=== PATIENT | male | born 1955 | race Asian ===

== ENCOUNTER → 2020-07-15 09:37 | Outpatient (BNVA) | payer MEDICARE, SELFPAY | PROVIDERS: PCP Internal Medicine; Referring Provider Internal Medicine; Visit Provider Surgery | DX: K59.00 Constipation, unspecified (principal); R19.8 Other specified symptoms and signs involving the digestive system and abdomen | CPT/HCPCS: 99202 ==

== ENCOUNTER 2020-08-05 15:27 | Outpatient (REF) | payer MEDICARE, SELFPAY ==
--- NOTE | 2020-08-05 15:37 | XR_ITS ---
EXAMINATION: XR HAND, LEFT CLINICAL INFORMATION: Left fourth digit deformity. COMPARISON: None TECHNIQUE: PA, lateral, and oblique views of the left hand. FINDINGS: There is a minimally displaced oblique fracture of the mid diaphysis of the proximal thousand the fourth digit. The remainder the digits are intact. The carpal bones are normally aligned. The distal radius and ulna are intact. Mild soft tissue swelling is seen. XR/XR hand LT min 3V IMPRESSION: Acute, minimally displaced fracture of the proximal phalanx of the fifth digit with mild soft tissue swelling.
== END 2020-08-05 15:28 | disposition home or self-care (01) ==
LOC: HO.HMGCX 15:27
PROVIDERS: PCP Internal Medicine; Visit Provider Nurse Practitioner Family
DX: M20.002 Unspecified deformity of left finger(s) (principal)
CPT/HCPCS: 73130

== ENCOUNTER 2020-08-11 12:37 | Outpatient (REF) | payer MEDICARE, SELFPAY ==
--- NOTE | 2020-08-11 14:27 | XR_ITS ---
EXAMINATION: XR HAND, LEFT CLINICAL INFORMATION: Fracture, follow-up. Pain. COMPARISON: Radiographs left hand 08/05/2020. TECHNIQUE: PA, lateral, and oblique views of the left hand. FINDINGS: Fracture 4th finger proximal phalanx is again demonstrated. Alignment is similar to prior study. There is no dislocation or destructive process. No interval callus formation. Lateral view shows mild dorsal bowing distal ulna, stable. XR/XR hand LT min 3V IMPRESSION: Fracture 4th proximal phalanx similar to prior study 08/05/2020. No visible callus formation at this time.
== END 2020-08-11 12:38 | disposition home or self-care (01) ==
LOC: HO.HOSX 12:37
PROVIDERS: Visit Provider Orthopaedic Surgery
DX: S62.615A Displaced fracture of proximal phalanx of left ring finger, initial encounter for closed fracture (principal); M79.641 Pain in right hand
CPT/HCPCS: 73130; 99202

== ENCOUNTER 2020-08-13 10:30 | Day surgery (SDC) | payer MEDICARE, SELFPAY ==
--- NOTE | 2020-08-12 12:48 | HO.ANESPROP2 ---
Documented by User: Nayeli Ham 08/12/20 12:49 HPI - Anesthesia Eval Consult details Narrative: 64yo M for Ring Finger Fx ORIF PMFSH Past Medical History Medical History Altered bowel function Constipation Diabetes mellitus Surgical History Surgical History History of colonoscopy History of hemorrhoidectomy Social History Social History Are you a primary after school caregiver to a significant other at home: No Do you presently have visiting nurse or other home services: No Alcohol intake: current Alcohol intake frequency: holidays/special occasions only Smoking Status: Current every day smoker Packs Per Day: 1 Cigarettes Per Day: 20.0 Years Smoked: 40 Smoked in Last 30 Days: Yes Use of substances other than those prescribed or required for medical reasons: No Advance Directives: No Advance Directives Information Provided: Yes Advance Directives on File: No Recently lost weight without trying: No Current occupational status: retired Current occupation: right handed Meds Allergies Allergy/AdvReac Type Severity Reaction Status Date / Time No Known Allergies Allergy Verified 08/11/20 14:37 Home Medications Medication Instructions Recorded Confirmed Type metformin 1,000 mg tablet 1,000 mg PO BID 07/15/20 08/10/20 History Exam Exam Date and Time: August 12, 2020 124 Assessment and Plan Assessment Anesthesia Assessment: Chart Reviewed Documented by User: Vinny Jamison MD 08/13/20 16:01 PMFSH Past Medical History Medical History Altered bowel function Constipation Diabetes mellitus Surgical History Surgical History History of colonoscopy History of hemorrhoidectomy Social History Social History Are you a primary after school caregiver to a significant other at home: No Do you presently have visiting nurse or other home services: No Alcohol intake: current Alcohol intake frequency: holidays/special occasions only Smoking Status: Current every day smoker Packs Per Day: 1 Cigarettes Per Day: 20.0 Years Smoked: 40 Smoked in Last 30 Days: Yes Use of substances other than those prescribed or required for medical reasons: No Advance Directives: No Advance Directives Information Provided: Yes Advance Directives on File: No Recently lost weight without trying: No Current occupational status: retired Current occupation: right handed Meds Allergies Allergy/AdvReac Type Severity Reaction Status Date / Time No Known Allergies Allergy Verified 08/11/20 14:37 Home Medications Medication Instructions Recorded Confirmed Type metformin 1,000 mg tablet 1,000 mg PO BID 07/15/20 08/10/20 History Exam Airway Mallampati Class: II TM Dist: >3cm Neck ROM: Full Denture: Upper and Lower Heart: RRR Lungs: NL Other: AO Assessment and Plan Assessment Anesthesia Assessment: Anesthesia Plan Discussed Final Anesthetic Review NPO: Yes ASA Class: III Final Preanesthetic Review: No Changes in Pt Med Stat, Meds/Allgs Chart Reviewed, Consent Obtained/Reviewed and Anes Risks/Benef Reviewed Patient Risk: Intermediate Procedure Risk: Low Anesthetic Plan Anesthetic Plan: GA and Regional Block Disposition: Standard PACU
[2020-08-13] VITALS (7 sets, daily range): BP systolic 136–154; BP diastolic 75–88; PULSE 60–68; RESP 14–17; TEMP 36–36.8; O2SAT 93–98; BMI 24.7
--- NOTE | 2020-08-13 | FL_ITS ---
EXAMINATION: XR FLUOROSCOPY WITH IMAGES CLINICAL INFORMATION: ORIF left hand fracture COMPARISON: Previous x-rays 08/05/2020 and 08/11/2020 TECHNIQUE: Fluoroscopy performed by Dr. Pappas. Fluoroscopy time: 87 seconds Images: 4 FINDINGS: Fluoroscopic guidance was provided for ORIF of the comminuted fracture of the proximal phalanx of the fourth finger. Images demonstrate 2 K wires transfixing the fracture. FL/FL guidance in OR IMPRESSION: Fluoroscopic guidance for ORIF of fracture of the proximal phalanx of the fourth finger.
[2020-08-13 11:30] LABS: Glucose, Whole Blood 158 mg/dL (60-115)
[2020-08-13] MEDS: Lactated Ringers 1,000 ML 100 ML IVCONT (11:35)
--- NOTE | 2020-08-13 13:21 | MHC.SHP ---
Pre-Procedural Eval Section B Chief Complaint: Left Ring Finger Fx Allergies: Allergies Allergy/AdvReac Type Severity Reaction Status Date / Time No Known Allergies Allergy Verified 08/11/20 14:37 Plan I have reviewed the history and physical and performed a pertinent physical examination on my patient. No changes have occurred unless specified. l rf p1 fx crpp/orif
[2020-08-13] MEDS: ceFAZolin Sodium/Dextrose,Iso 2 GM/50 ML PIGGYBACK IV (14:50)
--- NOTE | 2020-08-13 15:14 | W.PM.OPN ---
Operative Note Operative Note Date of Service: 08/13/20 Narrative: Operative Note Narrative: Preop diagnosis: 1. Left ring finger proximal phalanx shaft volar shaft fracture Postop diagnosis: Same Procedure: 1. Left ring finger proximal phalanx fracture open reduction internal fixation Surgeon: Milly Pappas MD Anesthesia: General Findings: left ring finger proximal phalanx fracture with some early bone healing. Implants: A 0.045 K-wires times 2 Tourniquet time: 52 minutes EBL: Minimal Specimen: None Drains: None Complications: None Disposition: Brought to the recovery room in stable condition Plan: Follow-up in 10-14 days for a wound check, postop radiographs and for placement in a short-arm finger spica cast Anticipate K-wire removal in 5 weeks based on interval bony healing, is a 1 [id number] smoker Educate the patient that full fracture healing anticipated in approximately 8-12 weeks. Indications: The patient is 64 years old with a 2-week-old left ring finger spiral oblique proximal phalanx fracture . The risks and benefits of operative treatment, including but not limited to risk of damage to blood vessels, nerves, tendons, infection, recurrence, delayed or nonunion of fracture, persistent pain or numbness, incomplete resolution of preoperative symptoms, or need for further surgery were discussed with the patient and they wished to proceed with surgery. Procedure: Once consent was obtained patient was brought back to the operating suite and placed in the operating table in a supine position. A regional block was performed by the anesthesia team. Perioperative antibiotics and general anesthesia was administered by the anesthesia team. A tourniquet was applied to the proximal aspect of the left upper extremity and the limb was prepped and draped in a standard surgical fashion. I it tented in gentle closed reduction of our fracture, but there was already some healing in this 14-day-old fracture. Thus a decision was made to proceed with an open reduction and internal fixation The limb was elevated and exsanguinated with an Esmarch bandage and the tourniquet inflated a total tourniquet time of 52 minutes.. The FluoroScan was used during the case to assist with our fracture reduction and placement of all implants. A 3 cm dorsal longitudinal incision was made over the dorsal aspect of the left ring finger proximal phalanx. The incision was made through the skin to the subcutaneous tissues using a 15. Blade. I then carefully dissected down to the level of the extensor mechanism using tenotomy scissors. I made a longitudinal incision in the extensor tendon for exposure of fracture site. Tendon was retracted both radially and ulnarly. Fracture was an oblique fracture, with some early callus formation. [place] elevator was used to remove some of the early callus. I then performed an open reduction. The 1st K-wire was passed retrograde through the distal radial corner of the proximal phalanx. This was advanced obliquely across our fracture site and into the proximal aspect of the proximal phalanx. This K-wire passed almost orthogonal to our fracture line, and I was satisfied with our reduction and placement of this K-wire. The reduction was assessed in both flexion and extension for both angular and rotational alignment. A 2nd 0.045 K-wire was passed through the ulnar proximal base of the proximal phalanx. This K-wire was then advanced distally across the fracture to the head of the proximal phalanx. Once satisfied with the placement of this K-wire I tried to add a 3rd K-wire through the radial base of the proximal phalanx, but found it difficult to pass through the isthmus with the other 2 K-wires without disrupting our reduction. A 3rd K-wire was therefore removed. Had good stability with the 2 K-[address] in place. Again the finger was assessed for rotational and angular alignment and I was satisfied with this as well. At this point the pins were bent cut short and had pin caps applied. Final fluoroscopic images were then obtained. The wounds were copiously irrigated with normal saline. A digital block was performed using some 0.25% plain Marcaine for postop pain control.. A Sterile dressing and short volar splint was applied. The patient appears to have tolerated the procedure well and with no complications. All digits were well vascularized at the conclusion of the case.
== END 2020-08-13 17:45 | disposition home or self-care (01) ==
PROVIDERS: PCP Internal Medicine; Visit Provider Orthopaedic Surgery
PROC: (CPT 26735; principal; 2020-08-13 12:40)
DX: S62.615A Displaced fracture of proximal phalanx of left ring finger, initial encounter for closed fracture (principal); W10.9XXA Fall (on) (from) unspecified stairs and steps, initial encounter; Y93.01 Activity, walking, marching and hiking; Y92.9 Unspecified place or not applicable; Y99.8 Other external cause status; E11.9 Type 2 diabetes mellitus without complications; Z79.84 Long term (current) use of oral hypoglycemic drugs; F17.210 Nicotine dependence, cigarettes, uncomplicated
CPT/HCPCS: 26735; 82947; J0690; J1100; J2250; J2370; J2405; J3010

== ENCOUNTER 2020-08-18 06:25 | Day surgery (SDC) | payer MEDICARE, SELFPAY ==
[2020-08-10 17:35] VITALS: BMI 25.0
--- NOTE | 2020-08-17 10:46 | HO.ANESPROP2 ---
Documented by User: Nayeli Ham 08/17/20 10:48 HPI - Anesthesia Eval Consult details Narrative: 64yo M for Colonoscopy s/p hand surgery 08/13/2019 with GA-LMA 4 and nerve block. No anesth issue [facility] Past Medical History Medical History Altered bowel function Constipation Diabetes mellitus Surgical History Surgical History (Updated 08/18/20 @ 07:30 by Mena Damon) History of colonoscopy History of hand surgery History of hemorrhoidectomy Social History Social History Are you a primary care center manager to a significant other at home: No Do you presently have visiting nurse or other home services: No Alcohol intake: current Alcohol intake frequency: holidays/special occasions only Smoking Status: Current every day smoker Packs Per Day: 1 Cigarettes Per Day: 20.0 Years Smoked: 40 Smoked in Last 30 Days: Yes Patient Interested in Nicotine Replacement: No Patient Given Instructions on How to Stop Smoking: No Use of substances other than those prescribed or required for medical reasons: No Advance Directives: No Advance Directives Information Provided: No Advance Directives on File: No Current occupational status: retired Current occupation: right handed Meds Allergies Allergy/AdvReac Type Severity Reaction Status Date / Time No Known Allergies Allergy Verified 08/11/20 14:37 Home Medications Medication Instructions Recorded Confirmed Type metformin 1,000 mg tablet 1,000 mg PO BID 07/15/20 08/10/20 History Exam Exam Date and Time: August 17, 2020 1046 Height,Weight and Vital Signs: Height 5 ft 8 in Weight 74.843 kg Assessment and Plan Assessment Anesthesia Assessment: Chart Reviewed Documented by User: Mena Damon 08/18/20 07:32 [facility] Past Medical History Medical History Altered bowel function Constipation Diabetes mellitus Family History Family history of problems with anesthesia: No Surgical History Surgical History (Updated 08/18/20 @ 07:30 by Mena Damon) History of colonoscopy History of hand surgery History of hemorrhoidectomy History of Problems with Anesthesia: No Social History Social History Are you a primary care center manager to a significant other at home: No Do you presently have visiting nurse or other home services: No Alcohol intake: current Alcohol intake frequency: holidays/special occasions only Smoking Status: Current every day smoker Packs Per Day: 1 Cigarettes Per Day: 20.0 Years Smoked: 40 Smoked in Last 30 Days: Yes Patient Interested in Nicotine Replacement: No Patient Given Instructions on How to Stop Smoking: No Use of substances other than those prescribed or required for medical reasons: No Advance Directives: No Advance Directives Information Provided: No Advance Directives on File: No Current occupational status: retired Current occupation: right handed Meds Allergies Allergy/AdvReac Type Severity Reaction Status Date / Time No Known Allergies Allergy Verified 08/11/20 14:37 Home Medications Medication Instructions Recorded Confirmed Type metformin 1,000 mg tablet 1,000 mg PO BID 07/15/20 08/10/20 History Exam Height,Weight and Vital Signs: Vital Signs Temp Pulse Resp BP Pulse Ox 08/18/20 06:52 97.1 F 92 18 139/88 95 Pertinent Lab Results Pertinent Lab Results: Lab Results 08/18/20 Range/Units 06:46 POC Glucose 164 H (60-115) mg/dL Airway Mallampati Class: III (Small mouth opening) TM Dist: >3cm Neck ROM: Full Loose/Missing/Broken Teeth: Yes (Poor dentition. Broken teeth top front.) Heart: RRR Lungs: CTAB Assessment and Plan Assessment Anesthesia Assessment: Anesthesia Plan Discussed and Chart Reviewed Final Anesthetic Review NPO: Yes ASA Class: II Final Preanesthetic Review: No Changes in Pt Med Stat, Meds/Allgs Chart Reviewed, Consent Obtained/Reviewed and Anes Risks/Benef Reviewed Patient Risk: Low Procedure Risk: Low Assessment/Block/Sedation in SS: Assess/Block/Sedation-SS Anesthetic Plan Anesthetic Plan: MAC: Disposition: Standard PACU
[2020-08-18 06:52] VITALS: BP 139/88; PULSE 92; RESP 18; TEMP 36.2; O2SAT 95
[2020-08-18 07:05] LABS: Glucose, Whole Blood 164 mg/dL (60-115)
--- NOTE | 2020-08-18 07:06 | PC.NURSE ---
PATIENT NEEDS AN CUTTING TABLE OPERATOR [place] VIDEO USED.
[2020-08-18] MEDS: Lactated Ringers 1,000 ML 100 ML IVCONT (07:10)
--- NOTE | 2020-08-18 07:21 | PC.NURSE ---
pt stated understanding procedure when dr gavin at bedside sts doesnot need interpretor
--- NOTE | 2020-08-18 07:28 | MHC.SHP ---
Pre-Procedural Eval Section B Chief Complaint: Constipation,Altered bowel function Details of Present Illness: has altered bowel habits x 6 months; colonoscopy in 2015 in [place] was unremarkable Relevant Family History (Specify if Yes): No Relevant Social History: None Present Medications: see Short Stay Collaborative assessment Medical History: Significant History (DM) History of Previous Operations: No relevant previous surgery Allergies: Allergies Allergy/AdvReac Type Severity Reaction Status Date / Time No Known Allergies Allergy Verified 08/11/20 14:37 Review of Systems Sugical H&P ROS: Negative: Cardiovascular, Respiratory, Neurological, Psychiatric, Hem-Onc, Allergic/Immunologic, Genitourinary, Musculoskeletal, Integumentary, Endocrine and Eyes/Ears/Nose/Throat and Yes, Specify: Constitution (weight loss) and Gastrointestinal (constipation) Exam Surgical H&P Exam: Normal: HEENT, Normal: Heart, Normal: Lungs, Normal: Extremities, Normal: Abdomen, Normal: Skin and Normal: Neurological Plan Diagnosis/Plan: Unchanged I have reviewed the history and physical and performed a pertinent physical examination on my patient. No changes have occurred unless specified.
--- NOTE | 2020-08-18 08:29 | PM.OP ---
Brief Operative Note Date of Service: 08/18/20 Pre-op diagnosis: altered bowel habits Post-op diagnosis: other (int ext hemorrhoids) Procedure: colonoscopy Surgeon: Guanako Oneill MD Anesthesia: MAC Estimated blood loss (mL): 0 Pathology: none sent Condition: stable Disposition: PACU
[2020-08-18 08:30] VITALS: BP 89/52; PULSE 78; RESP 10; TEMP 36.6; O2SAT 97
[2020-08-18 08:33] VITALS: BP 101/63; PULSE 70; RESP 12; O2SAT 94
[2020-08-18 08:43] VITALS: BP 116/74; RESP 14; O2SAT 94
[2020-08-18 08:58] VITALS: BP 105/75; PULSE 65; RESP 16; O2SAT 98
--- NOTE | 2020-08-18 09:05 | PC.NURSE ---
0900 AWAKE ALERT CONT TO DECLINE PPO ASST OOB TO CH LITTLE MOMITORS DCD IV DC PT DRESS AT BS CALL KAMARA IN REACH AMB TO DISC
--- NOTE | 2020-08-18 09:07 | OP_ITS ---
SURGEON: Guanako Oneill MD INDICATIONS: The patient is a 64-year-old male who was referred to me because of altered bowel habits for the past 6 months. He describes new onset of constipation, some occasional bleeding with bowel movements. He understood the technique of colonoscopy. He was aware of the risks, benefits, and alternatives. PREOPERATIVE DIAGNOSIS: Altered bowel habits. POSTOPERATIVE DIAGNOSIS: PROCEDURE PERFORMED: Colonoscopy. ESTIMATED BLOOD LOSS: COMPLICATIONS: ANESTHESIA: ASSISTANTS: SPECIMENS: POSTOPERATIVE DIAGNOSES: Altered bowel habits, hemorrhoids, otherwise normal colonoscopy findings. DESCRIPTION OF PROCEDURE: He was brought to the operating room, placed in left lateral decubitus position under monitored anesthesia care. A full digital rectal was done. There were no palpable anal canal lesions. The tip of the Olympus colonoscope was introduced gently through the anal orifice and advanced with insufflation all the way to the cecum. The cecum was intubated. The cecum was identified by visualization of the ileocecal valve as well as the appendiceal orifice. The cecal mucosa unremarkable. The scope was gradually withdrawn with careful examination of the entire colonic mucosa being done with scope withdrawal. It was noteworthy, however, that the patient had thins watery stoosl as well as small seeds scattered throughout the entire colon. We had to spend a lot of time irrigating and suctioning all of these to make sure that we had good visualization of the entire colonic mucosa. It was unlikely that any lesion may have been missed.However, we had to do a lot of irrigation and suctioning. There were no lesions seen. I did not see any polyps. The rectum was reached and this was unremarkable. The anal canal was unremarkable except for hemorrhoids, internal and external. The scope was then withdrawn completely with de-sufflation. The patient tolerated procedure well. There were no complications noted. For the purposes of screening, I would recommend another colonoscopy in 5 years in view of the suboptimal bowel prep. Other than that, there is no identifiable pathology for his altered bowel habits at this time. MD DOMINIK Mcqueen/YOUL / [id number] MTDD
--- NOTE | 2020-08-18 09:17 | HO.POSTANES ---
Post Anesthesia Evaluation Post Anesthesia Evaluation Vital Signs: Vital Signs Temp Pulse Resp BP Pulse Ox 08/18/20 08:58 98 F 65 16 105/75 98 08/18/20 08:43 14 116/74 94 08/18/20 08:33 70 12 101/63 94 08/18/20 08:30 98 F 78 10 L 89/52 L 97 08/18/20 06:52 97.1 F 92 18 139/88 95 Anesthesia: Monitored Mental Status: Awake Pain Control: Satisfactory Nausea/Vomiting: None Hydration: Adequate Anesthesia-Related Issues: No Anes. Related Issues
== END 2020-08-18 09:40 | disposition home or self-care (01) ==
PROVIDERS: PCP Internal Medicine; Visit Provider Surgery
PROC: 0DJD8ZZ Inspection of Lower Intestinal Tract, Via Natural or Artificial Opening Endoscopic (ICD-10-PCS; CPT 45378; principal; 2020-08-18 07:30)
DX: R19.4 Change in bowel habit (principal); K59.00 Constipation, unspecified; K64.8 Other hemorrhoids; K64.4 Residual hemorrhoidal skin tags; E11.9 Type 2 diabetes mellitus without complications; Z79.84 Long term (current) use of oral hypoglycemic drugs; F17.210 Nicotine dependence, cigarettes, uncomplicated
CPT/HCPCS: 45378; 82947

== ENCOUNTER 2020-08-25 08:58 | Outpatient (REF) | payer MEDICARE, SELFPAY ==
--- NOTE | 2020-08-25 09:29 | XR_ITS ---
EXAMINATION: XR HAND, LEFT CLINICAL INFORMATION: Pain. Fracture. COMPARISON: Previous x-rays most recent 08/13/2020 TECHNIQUE: PA, lateral, and oblique views of the left hand. FINDINGS: There are 2 K wires or pins transfixing the comminuted oblique fracture of the proximal phalanx of the fourth finger. Orthopedic hardware appears unchanged. Fracture appears unchanged in alignment. Fracture line is still seen. There is new periosteal reaction. No other fracture is seen. Soft tissues are unremarkable. XR/XR hand LT min 3V IMPRESSION: ORIF of oblique comminuted fracture of the proximal phalanx of the fourth finger. Fracture line still seen. Minimal new periosteal reaction.
== END 2020-08-25 08:59 | disposition home or self-care (01) ==
LOC: HO.HOSX 08:58
PROVIDERS: PCP Internal Medicine; Visit Provider Orthopaedic Surgery
DX: S62.615A Displaced fracture of proximal phalanx of left ring finger, initial encounter for closed fracture (principal); F17.210 Nicotine dependence, cigarettes, uncomplicated
CPT/HCPCS: 73130; 99212

== ENCOUNTER → 2020-08-31 12:57 | Outpatient (BNVA) | payer MEDICARE, SELFPAY | PROVIDERS: PCP Internal Medicine; Visit Provider Surgery | DX: R19.8 Other specified symptoms and signs involving the digestive system and abdomen (principal) | CPT/HCPCS: 99212 ==

== ENCOUNTER 2020-09-15 10:01 | Outpatient (REF) | payer MEDICARE, SELFPAY ==
--- NOTE | ~2020-09-15 | XR_ITS ---
EXAMINATION: XR HAND, LEFT CLINICAL INFORMATION: Follow-up fracture COMPARISON: Previous x-ray most recent 08/25/2020 TECHNIQUE: PA, lateral, and oblique views of the left hand. FINDINGS: There are 2 K wires transfixing the fracture of the proximal phalanx of the fourth finger. Orthopedic hardware appears intact. Fracture appears unchanged in alignment. Fracture lines are still seen. No significant bony callus formation is seen. There is no other fracture. There is soft tissue swelling adjacent to the fracture. XR/XR hand LT min 3V IMPRESSION: ORIF of fracture of the proximal phalanx of the fourth finger. No change from 08/25/2020.
== END 2020-09-15 10:02 | disposition home or self-care (01) ==
LOC: HO.XRAY 10:01
PROVIDERS: PCP Internal Medicine; Visit Provider Orthopaedic Surgery
DX: S62.615A Displaced fracture of proximal phalanx of left ring finger, initial encounter for closed fracture (principal); F17.210 Nicotine dependence, cigarettes, uncomplicated; Z98.890 Other specified postprocedural states
CPT/HCPCS: 73130; 99212

== ENCOUNTER 2020-10-12 16:31 | Outpatient (REF) | payer MEDICARE, SELFPAY ==
--- NOTE | ~2020-10-12 | XR_ITS ---
EXAMINATION: XR HAND, LEFT CLINICAL INFORMATION: Left hand pain. COMPARISON: None TECHNIQUE: PA, lateral, and oblique views of the left hand. FINDINGS: Oblique linear lucencies are seen in the distal aspect of the proximal phalanx of the fourth digit. Remainder the digits are intact. The carpal bones are normally aligned. The distal radius and ulna are intact. There is mild soft tissue swelling. XR/XR hand LT min 3V IMPRESSION: Comminuted, nondisplaced fracture of the proximal phalanx of the port digit appears acute or subacute. Correlate with physical exam and trauma history. Mild soft tissue swelling.
== END 2020-10-12 16:32 | disposition home or self-care (01) ==
LOC: HO.HOSX 16:31
PROVIDERS: Visit Provider Orthopaedic Surgery
DX: M79.642 Pain in left hand (principal)
CPT/HCPCS: 73130

== ENCOUNTER 2020-10-13 09:58 | Outpatient (REF) | payer MEDICARE, SELFPAY | END 2020-10-13 09:59 | disposition home or self-care (01) | LOC: HO.HOSX 09:58 | PROVIDERS: Visit Provider Orthopaedic Surgery | DX: S62.615D Displaced fracture of proximal phalanx of left ring finger, subsequent encounter for fracture with routine healing (principal); M25.642 Stiffness of left hand, not elsewhere classified | CPT/HCPCS: 99212 ==

== ENCOUNTER → 2021-02-12 14:01 | Outpatient (BNVA) | payer MEDICARE, SELFPAY | PROVIDERS: PCP Internal Medicine; Referring Provider Internal Medicine; Visit Provider Surgery | DX: K64.5 Perianal venous thrombosis (principal) | CPT/HCPCS: 46083; 99212 ==